=== PATIENT | female | born 1955 | race African-American/Black ===

== ENCOUNTER 2019-02-24 23:19 | Inpatient (IN) | payer MEDICAID ==
[~2019-02-24] VITALS: Ht 165.1 cm; Wt 49.9 kg
[2019-02-24] MEDS ORDERED: ACETAMINOPHEN 650MG SUPP PR STA (23:42)
[2019-02-24] MEDS ORDERED: VANCOMYCIN 1 G PREMIX 200 ML IV ONE (23:45)
[2019-02-24] MEDS ORDERED: SODIUM CHLORIDE 0.9% 1000ML BAG (SEPSIS BOLUS) IV ONE (23:45)
[2019-02-24] MEDS ORDERED: PIPERACILLIN/TAZ 3.375G PREMIX 50 ML IV ONE (23:45)
[2019-02-25] MEDS ORDERED: AZITHROMYCIN 500 MG in DEXT 5% WATER 250 ML IV SCH (00:15)
[2019-02-25 00:23] LABS: CLARITY URINE CLOUDY (CLEAR); COLOR URINE DARK YELLOW (YELLOW); KETONES URINE TRACE (NEGATIVE); LEUKOCYTE ESTERASE URINE 3+ (NEGATIVE); NITRITE URINE POSITIVE (NEGATIVE); OCCULT BLOOD URINE TRACE (NEGATIVE); PROTEIN URINE 2+ (NEGATIVE); SPECIFIC GRAVITY URINE 1.033 (1.005-1.030)
[2019-02-25] MEDS ORDERED: ONDANSETRON HCL 4MG/2ML INJ IV ONE (01:00)
[2019-02-25] MEDS ORDERED: ONDANSETRON HCL 4MG/2ML INJ IV PRN (01:30)
[2019-02-25] MEDS ORDERED: DOCUSATE SODIUM 100MG CAPSULE PO PRN (01:30)
[2019-02-25] MEDS ORDERED: GUAIFENESIN 200MG/10ML SUGAR FREE UDC PO PRN (01:30)
[2019-02-25] MEDS ORDERED: HYDROCODONE/ACETAMINOPHEN 5/325MG TABLET PO PRN (01:30)
[2019-02-25] MEDS ORDERED: DIPHENHYDRAMINE 50MG/ML VIAL IV PRN (01:30)
[2019-02-25] MEDS ORDERED: ACETAMINOPHEN 325MG TABLET PO PRN (01:30)
[2019-02-25] MEDS ORDERED: LORAZEPAM 2MG/ML CPJ IV PRN (01:30)
[2019-02-25] MEDS ORDERED: MORPHINE SULFATE 2 MG/ML CPJ (NOT FOR IM USE) IV PRN (01:30)
[2019-02-25] MEDS ORDERED: IPRATROPIUM/ALBUTEROL 0.5-3(2.5)MG/3ML NEB INH PRN (01:30)
[2019-02-25] MEDS ORDERED: MAGNESIUM/ALUMINUM HYDROXIDE/SIMETHICONE 30ML UDC PO PRN (01:30)
[2019-02-25] MEDS ORDERED: LEVOFLOXACIN 500MG PREMIX 100 ML IV SCH (01:30)
[2019-02-25] MEDS ORDERED: ENOXAPARIN 40MG/0.4ML SYR SUBCUT SCH (01:30)
[2019-02-25] MEDS ORDERED: CLONIDINE 0.1MG TABLET PO PRN (01:30)
[2019-02-25] MEDS ORDERED: NA PHOS,M-B/NA PHOS,DI-BA ENEMA 118ML PR PRN (01:30)
[2019-02-25 01:42] LABS: BASOPHILS % 0.4 % (0.0-2.0); CHLORIDE 104 mEq/L (98-107); EOSINOPHILS % 0.1 % (0.0-5.0); HEMATOCRIT. 33.3 % (36.0-48.0); MEAN CORPUSCULAR HEMOGLOBIN 27.7 pg (28.0-32.0); MEAN CORPUSCULAR VOLUME 83.3 fL (81.0-99.0); MEAN PLATELET VOLUME 8.4 fl (7.4-10.4); MONOCYTES % 8.3 % (2.0-8.0); NEUTROPHILS % 79.2 % (40.0-76.0); PLATELET 165 x1000/uL (130-400); RED BLOOD CELL COUNT 3.99 mill/uL (4.2-5.4); RED CELL DISTRIBUTION WIDTH 14.4 % (11.6-14.6)
[2019-02-25 02:10] VITALS: BP 96/49
[2019-02-25 04:00] VITALS: BP 85/45
[2019-02-25] MEDS: LEVOFLOXACIN 500MG PREMIX 100 ML IV SCH (05:50)
[2019-02-25 08:00] VITALS: BP 103/59
[2019-02-25] MEDS: ASPIRIN 81MG EC TABLET PO SCH (09:12)
[2019-02-25] MEDS: ENOXAPARIN 40MG/0.4ML SYR SUBCUT SCH (09:12)
[2019-02-25 12:00] VITALS: BP 103/59
[2019-02-25] MEDS ORDERED: POTASSIUM CHLORIDE 20MEQ TABLET SR PO NR ×3 (12:30→16:00)
[2019-02-25] MEDS ORDERED: BENZONATATE 100MG CAPSULE PO PRN (14:15)
[2019-02-25 15:01] LABS: *AMPHETAMINES SCREEN URINE NEGATIVE (NEGATIVE); *BARBITURATES SCREEN URINE NEGATIVE (NEGATIVE); *BENZODIAZEPINES SCREEN URINE NEGATIVE (NEGATIVE); *COCAINE SCREEN URINE PRESUMTIVE POSITIVE (NEGATIVE); METHADONE URINE SCREEN NEGATIVE (NEGATIVE); OPIATES URINE SCREEN NEGATIVE (NEGATIVE)
[2019-02-25 15:02] LABS: CANNABINOID URINE SCREEN NEGATIVE (NEGATIVE); PHENCYCLIDINE URINE SCREEN NEGATIVE (NEGATIVE)
[2019-02-25] MEDS: NICOTINE 21MG PATCH TD SCH (15:47)
[2019-02-25 16:00] VITALS: BP 116/56
[2019-02-25 17:36] LABS: PHOSPHORUS 2.7 mg/dL (2.5-4.9)
[2019-02-25] MEDS: METRONIDAZOLE 500 MG PREMIX 250 MG in BAG 0 EACH IV SCH (17:53)
[2019-02-25 20:00] VITALS: BP 110/58
[2019-02-25] MEDS: IPRATROPIUM/ALBUTEROL 0.5-3(2.5)MG/3ML NEB HHN SCH (20:20)
[2019-02-25 20:30] LABS: *AMPHETAMINES SCREEN URINE NEGATIVE (NEGATIVE); *BARBITURATES SCREEN URINE NEGATIVE (NEGATIVE); *BENZODIAZEPINES SCREEN URINE NEGATIVE (NEGATIVE); *COCAINE SCREEN URINE PRESUMTIVE POSITIVE (NEGATIVE); METHADONE URINE SCREEN NEGATIVE (NEGATIVE); OPIATES URINE SCREEN PRESUMTIVE POSITIVE (NEGATIVE)
[2019-02-25 20:31] LABS: CANNABINOID URINE SCREEN NEGATIVE (NEGATIVE); PHENCYCLIDINE URINE SCREEN NEGATIVE (NEGATIVE)
[2019-02-26] VITALS: BP 116/55
[2019-02-26] MEDS: METRONIDAZOLE 500 MG PREMIX 250 MG in BAG 0 EACH IV SCH ×3 (00:04→17:26)
[2019-02-26] MEDS: ACETYLCYSTEINE 100MG/ML 10% VIAL 4ML INH SCH ×3 (00:21→16:22)
[2019-02-26] MEDS: IPRATROPIUM/ALBUTEROL 0.5-3(2.5)MG/3ML NEB HHN SCH ×6 (00:21→21:25)
[2019-02-26 04:00] VITALS: BP 115/58
[2019-02-26 06:54] LABS: CHLORIDE 108 mEq/L (98-107)
[2019-02-26 06:55] LABS: BASOPHILS % 0.6 % (0.0-2.0); EOSINOPHILS % 0.9 % (0.0-5.0); HEMATOCRIT. 32.1 % (36.0-48.0); HEMOGLOBIN. 10.7 g/dL (12.0-16.0); LYMPHOCYTES % 38.2 % (20.0-50.0); MEAN CORPUSCULAR HEMOGLOBIN 27.9 pg (28.0-32.0); MEAN CORPUSCULAR VOLUME 83.7 fL (81.0-99.0); MEAN PLATELET VOLUME 8.7 fl (7.4-10.4); MONOCYTES % 13.5 % (2.0-8.0); NEUTROPHILS % 46.8 % (40.0-76.0); PLATELET 201 x1000/uL (130-400); RED BLOOD CELL COUNT 3.83 mill/uL (4.2-5.4); RED CELL DISTRIBUTION WIDTH 14.3 % (11.6-14.6)
[2019-02-26 07:04] LABS: CREATINE KINASE MB FRACTION < 1.0 ng/mL (0.5-3.6); LDL CHOLESTEROL 105 mg/dL (5-100)
[2019-02-26 07:05] LABS: CREATINE KINASE 27 IU/L (26-192); HDL CHOLESTEROL 15 mg/dL (40-59)
[2019-02-26 07:50] VITALS: BP 104/55
[2019-02-26] MEDS: ASPIRIN 81MG EC TABLET PO SCH (08:36)
[2019-02-26] MEDS: LEVOFLOXACIN 500MG PREMIX 100 ML IV SCH (08:37)
[2019-02-26] MEDS: ENOXAPARIN 40MG/0.4ML SYR SUBCUT SCH (08:37)
[2019-02-26] MEDS: NICOTINE 21MG PATCH TD SCH (08:47)
[2019-02-26 12:00] VITALS: BP 106/69
[2019-02-26] MEDS ORDERED: POTASSIUM CHLORIDE 20MEQ TABLET SR PO NR (14:00)
[2019-02-26] MEDS ORDERED: VANCOMYCIN 1 G PREMIX 200 ML IV SCH (15:30)
[2019-02-26 16:00] VITALS: BP 110/55
[2019-02-26 20:00] VITALS: BP 114/57
[2019-02-27] VITALS: BP 119/61
[2019-02-27] MEDS: METRONIDAZOLE 500 MG PREMIX 250 MG in BAG 0 EACH IV SCH ×3 (00:13→15:27)
[2019-02-27] MEDS: IPRATROPIUM/ALBUTEROL 0.5-3(2.5)MG/3ML NEB HHN SCH ×6 (00:15→21:03)
[2019-02-27] MEDS: ACETYLCYSTEINE 100MG/ML 10% VIAL 4ML INH SCH ×3 (00:15→16:24)
[2019-02-27 04:00] VITALS: BP 133/66
[2019-02-27] MEDS: VANCOMYCIN 750 MG PREMIX 150 ML IV SCH ×2 (04:10→16:41)
[2019-02-27 08:00] VITALS: BP 127/79
[2019-02-27] MEDS: LEVOFLOXACIN 500MG PREMIX 100 ML IV SCH (08:09)
[2019-02-27] MEDS: NICOTINE 21MG PATCH TD SCH (08:09)
[2019-02-27] MEDS: ASPIRIN 81MG EC TABLET PO SCH (08:09)
[2019-02-27] MEDS: ENOXAPARIN 40MG/0.4ML SYR SUBCUT SCH (08:09)
[2019-02-27 12:00] VITALS: BP 100/59
[2019-02-27 16:00] VITALS: BP 118/61
[2019-02-27 20:00] VITALS: BP 127/60
[2019-02-28] MEDS: METRONIDAZOLE 500 MG PREMIX 250 MG in BAG 0 EACH IV SCH (00:46)
[2019-02-28] MEDS: ACETYLCYSTEINE 100MG/ML 10% VIAL 4ML INH SCH ×2 (01:59→07:26)
[2019-02-28] MEDS: IPRATROPIUM/ALBUTEROL 0.5-3(2.5)MG/3ML NEB HHN SCH ×4 (01:59→12:00)
[2019-02-28 04:00] VITALS: BP_SYST 117; BP_SYST 137; BP_DIAS 66; BP_DIAS 70
[2019-02-28] MEDS: VANCOMYCIN 750 MG PREMIX 150 ML IV SCH (04:07)
[2019-02-28 06:31] LABS: HEMATOCRIT. 30.8 % (36.0-48.0); HEMOGLOBIN. 10.4 g/dL (12.0-16.0); MEAN CORPUSCULAR HEMOGLOBIN 27.8 pg (28.0-32.0); MEAN CORPUSCULAR VOLUME 82.7 fL (81.0-99.0); MEAN PLATELET VOLUME 8.4 fl (7.4-10.4); PLATELET 305 x1000/uL (130-400); RED BLOOD CELL COUNT 3.72 mill/uL (4.2-5.4); RED CELL DISTRIBUTION WIDTH 14.2 % (11.6-14.6)
[2019-02-28 07:18] LABS: CHLORIDE 106 mEq/L (98-107)
[2019-02-28 08:00] VITALS: BP 112/55
[2019-02-28] MEDS: LEVOFLOXACIN 500MG PREMIX 100 ML IV SCH (08:03)
[2019-02-28] MEDS: NICOTINE 21MG PATCH TD SCH (08:34)
[2019-02-28] MEDS: ASPIRIN 81MG EC TABLET PO SCH (08:34)
[2019-02-28] MEDS: ENOXAPARIN 40MG/0.4ML SYR SUBCUT SCH (08:34)
[2019-02-28] MEDS ORDERED: METRONIDAZOLE 500 MG PREMIX 100 ML IV SCH (09:00)
[2019-02-28 10:10] VITALS: BP 112/55
[2019-02-28 10:23] LABS: NUCLEATED RED BLOOD CELLS 1 /100 WBC; PLATELET ESTIMATE NORMAL
== END 2019-02-28 12:25 | disposition home or self-care (01) | DRG 720 ==
LOC: ER 23:19 → EDBEDREQSVC 02-25 00:38 → EDBEDREQTM 02-25 00:38 → EDBEDREQ 02-25 00:38 → ENRESERV 02-25 01:30 → 6WST 02-25 02:24
PROVIDERS: ADMIT Internal Medicine; ATTEND Internal Medicine
DX: A41.9 Sepsis, unspecified organism (principal); J96.01 Acute respiratory failure with hypoxia; E43 Unspecified severe protein-calorie malnutrition; J15.9 Unspecified bacterial pneumonia; K85.90 Acute pancreatitis without necrosis or infection, unspecified; E87.6 Hypokalemia; M06.9 Rheumatoid arthritis, unspecified; F12.10 Cannabis abuse, uncomplicated; F14.10 Cocaine abuse, uncomplicated; K83.8 Other specified diseases of biliary tract; F17.210 Nicotine dependence, cigarettes, uncomplicated; I10 Essential (primary) hypertension; N39.0 Urinary tract infection, site not specified; Z68.1 Body mass index [BMI] 19.9 or less, adult
CPT/HCPCS: 36415; 71045; 74181; 76700; 80048; 80061; 80202; 80305; 81003; 82550; 82553; 83605; 83735; 83880; 84100; 84134; 84145; 84439; 84443; 84484; 87077; 87186; 87804; 93005; 93306; 94640; 96365; 99285; J0456; J1650; J1956; J2405; J2543; J3370; J3490; J7030; J7060; J7608; J7620

== ENCOUNTER 2021-09-21 16:10 | Emergency (ER) | payer MEDICARE, OTHER ==
[~2021-09-21] VITALS: Ht 162.6 cm; Wt 49.0 kg
[2021-09-21] MEDS ORDERED: DEXTL MT (20:33)
[2021-09-21] MEDS ORDERED: ACET-2708 MT (20:33)
[2021-09-21] MEDS ORDERED: ACETAMINOPHEN 650MG/20.3ML UDC PO ONE (21:00)
[2021-09-21 21:05] VITALS: BP 138/85
== END 2021-09-21 21:05 | disposition home or self-care (01) ==
LOC: ER 16:10
DX: J06.9 Acute upper respiratory infection, unspecified (principal); B37.0 Candidal stomatitis; Z20.822 Contact with and (suspected) exposure to COVID-19
CPT/HCPCS: 71046; 87426; 99284

== ENCOUNTER 2022-05-30 19:41 | Inpatient (IN) | payer MEDICARE, OTHER ==
[~2022-05-30] VITALS: Ht 167.6 cm; Wt 43.6 kg
[~2022-05-30 19:41] MED LIST: ACET-2708 MT; ALBU18HF2 IH; DEXTL MT; FLUT1DIS3 INH; P20 MT
[2022-05-30] MEDS ORDERED: IPRATROPIUM BROMIDE (0.02%) 0.5MG/2.5ML NEB HHN STA (20:16)
[2022-05-30] MEDS ORDERED: ALBUTEROL (0.083%) 2.5MG/3ML NEB HHN STA (20:16)
[2022-05-30] MEDS ORDERED: METHYLPREDNISOLONE SOD SUCC 125 MG/2 ML VIAL IV STA (20:16)
[2022-05-30] MEDS ORDERED: ACETAMINOPHEN 325MG TABLET PO ONE (20:30)
[2022-05-30] MEDS ORDERED: VANCOMYCIN 1G PREMIX 200 ML IV SCH (20:45)
[2022-05-30] MEDS ORDERED: LEVOFLOXACIN 500MG PREMIX 100 ML IV ONE (20:45)
[2022-05-30 21:57] LABS: BASOPHILS % 0.4 % (0.0-2.0); EOSINOPHILS % 0.1 % (0.0-5.0); HEMATOCRIT. 34.8 % (36.0-48.0); HEMOGLOBIN. 11.5 g/dL (12.0-16.0); LYMPHOCYTES % 12.2 % (20.0-50.0); MEAN CORPUSCULAR HEMOGLOBIN 27.2 pg (28.0-32.0); MEAN CORPUSCULAR VOLUME 82.6 fL (81.0-99.0); MEAN PLATELET VOLUME 8.2 fl (7.4-10.4); MONOCYTES % 5.3 % (2.0-8.0); PLATELET 195 x1000/uL (130-400); RED BLOOD CELL COUNT 4.22 mill/uL (4.2-5.4); RED CELL DISTRIBUTION WIDTH 15.3 % (11.6-14.6)
[2022-05-30 22:02] LABS: CHLORIDE 109 mEq/L (98-107)
[2022-05-30] MEDS ORDERED: ENOXAPARIN 40MG/0.4ML SYR SUBCUT ONE (23:00)
[2022-05-30 23:18] LABS: BG BASE EXCESS 0.9 mmol/L (-2.0-2.0); BG CARBOXYHEMOGLOBIN 0.2 % (0.5-1.5); BG DEOXYHEMOGLOBIN 2.2 % (0.0-5.0); BG FRACTION INSPIRED OXYGEN 30; BG HCO3 ACT 24.9 mmol/L (22.0-26.0); BG METHEMOGLOBIN 0.3 % (0.0-1.5); BG OXYGEN SATURATION 97.8 % (92.0-98.5); BG OXYHEMOGLOBIN 97.3 % (94.0-97.0); BG PCO2 37.7 mmHg (35.0-45.0); BG PH 7.438 (7.350-7.450); BG PO2 105.6 mmHg (75.0-100.0); BG SAMPLE SITE RIGHT RADIAL; BG TOTAL HEMOGLOBIN 12.4 g/dL (12.0-18.0); BG VENT MODE MASK - BIPAP
[2022-05-31] MEDS ORDERED: POTASSIUM CHLORIDE 20MEQ TABLET SR PO SCH (10:00)
[2022-05-31] MEDS ORDERED: ONDANSETRON HCL 4MG/2ML INJ IV PRN (11:45)
[2022-05-31] MEDS ORDERED: DOCUSATE SODIUM 100MG CAPSULE PO PRN (11:45)
[2022-05-31] MEDS ORDERED: CLONIDINE 0.1MG TABLET PO PRN (11:45)
[2022-05-31] MEDS ORDERED: LORAZEPAM 0.5MG TABLET PO PRN (11:45)
[2022-05-31] MEDS ORDERED: IPRATROPIUM/ALBUTEROL 0.5-3(2.5)MG/3ML NEB HHN PRN (11:45)
[2022-05-31] MEDS ORDERED: HYDROCODONE/ACETAMINOPHEN 5/325MG TABLET PO PRN (11:45)
[2022-05-31] MEDS ORDERED: NALOXONE HCL 0.4MG/ML VIAL IV PRN (11:45)
[2022-05-31] MEDS ORDERED: ACETAMINOPHEN 325MG TABLET PO PRN ×2 (11:45)
[2022-05-31] MEDS ORDERED: POTASSIUM CHLORIDE 20MEQ TABLET SR PO NR (13:30)
[2022-05-31] MEDS ORDERED: BENZONATATE 100MG CAPSULE PO PRN (14:30)
[2022-05-31] MEDS ORDERED: GUAIFENESIN 600MG ER TABLET PO PRN (14:30)
[2022-05-31] MEDS: DEXAMETHASONE 10 MG/ML VIAL IV SCH (15:39)
[2022-05-31] MEDS: ENOXAPARIN 40MG/0.4ML SYR SUBCUT SCH (15:40)
[2022-05-31 16:00] VITALS: BP 106/57
[2022-05-31] MEDS: NITROGLYCERIN OINT 1GM/INCH UDPKT TD SCH (17:14)
[2022-05-31] MEDS: LEVOFLOXACIN 250MG TABLET PO SCH (18:10)
[2022-05-31] MEDS: ASPIRIN 81MG EC TABLET PO SCH (18:10)
[2022-05-31 20:00] VITALS: BP 101/56
[2022-05-31] MEDS: ALBUTEROL 6.7GM HFA INHALER ORI SCH ×2 (20:52→22:46)
[2022-06-01] VITALS: BP 118/59
[2022-06-01 00:30] LABS: *AMPHETAMINES SCREEN URINE NEGATIVE (NEGATIVE); *BARBITURATES SCREEN URINE NEGATIVE (NEGATIVE); *BENZODIAZEPINES SCREEN URINE NEGATIVE (NEGATIVE); *COCAINE SCREEN URINE PRESUMTIVE POSITIVE (NEGATIVE); CANNABINOID URINE SCREEN NEGATIVE (NEGATIVE); METHADONE URINE SCREEN NEGATIVE (NEGATIVE); OPIATES URINE SCREEN PRESUMTIVE POSITIVE (NEGATIVE); PHENCYCLIDINE URINE SCREEN NEGATIVE (NEGATIVE)
[2022-06-01 04:00] VITALS: BP 104/62
[2022-06-01 05:28] LABS: EOSINOPHILS % 0.1 % (0.0-5.0); HEMATOCRIT. 34.7 % (36.0-48.0); HEMOGLOBIN. 11.3 g/dL (12.0-16.0); LYMPHOCYTES % 12.9 % (20.0-50.0); MEAN CORPUSCULAR HEMOGLOBIN 27.4 pg (28.0-32.0); MEAN CORPUSCULAR VOLUME 84.4 fL (81.0-99.0); MEAN PLATELET VOLUME 8.8 fl (7.4-10.4); MONOCYTES % 6.3 % (2.0-8.0); NEUTROPHILS % 80.7 % (40.0-76.0); PLATELET 207 x1000/uL (130-400); RED BLOOD CELL COUNT 4.11 mill/uL (4.2-5.4); RED CELL DISTRIBUTION WIDTH 15.3 % (11.6-14.6)
[2022-06-01] MEDS: ALBUTEROL 6.7GM HFA INHALER ORI SCH ×4 (05:51→20:29)
[2022-06-01] MEDS: NITROGLYCERIN OINT 1GM/INCH UDPKT TD SCH ×4 (05:53→17:25)
[2022-06-01 08:00] VITALS: BP 96/51
[2022-06-01 08:19] LABS: CHLORIDE 106 mEq/L (98-107)
[2022-06-01] MEDS: ASPIRIN 81MG EC TABLET PO SCH (08:52)
[2022-06-01] MEDS: DEXAMETHASONE 10 MG/ML VIAL IV SCH (08:52)
[2022-06-01 12:00] VITALS: BP 113/64
[2022-06-01 16:00] VITALS: BP 103/61
[2022-06-01] MEDS: ENOXAPARIN 40MG/0.4ML SYR SUBCUT SCH (17:49)
[2022-06-01] MEDS: LEVOFLOXACIN 250MG TABLET PO SCH (17:49)
[2022-06-01 20:00] VITALS: BP 130/78
[2022-06-02] VITALS: BP 100/50
[2022-06-02] MEDS: ALBUTEROL 6.7GM HFA INHALER ORI SCH ×4 (03:53→21:32)
[2022-06-02 04:00] VITALS: BP 119/76
[2022-06-02] MEDS: NITROGLYCERIN OINT 1GM/INCH UDPKT TD SCH ×4 (05:36→18:00)
[2022-06-02 08:00] VITALS: BP 102/62
[2022-06-02] MEDS: ASPIRIN 81MG EC TABLET PO SCH (09:00)
[2022-06-02] MEDS: DEXAMETHASONE 10 MG/ML VIAL IV SCH (09:13)
[2022-06-02 12:00] VITALS: BP 128/65
[2022-06-02] MEDS: ENOXAPARIN 40MG/0.4ML SYR SUBCUT SCH (15:30)
[2022-06-02 16:00] VITALS: BP 93/43
[2022-06-02] MEDS ORDERED: ALBU6.7H3 INH ×3 (18:42→18:43)
[2022-06-02] MEDS: LEVOFLOXACIN 250MG TABLET PO SCH (18:44)
[2022-06-02 20:00] VITALS: BP 96/57
[2022-06-02] MEDS ORDERED: ATORVASTATIN CALCIUM 10MG TABLET PO SCH (21:00)
[2022-06-03] VITALS: BP 96/60
[2022-06-03 04:00] VITALS: BP 117/68
[2022-06-03] MEDS: ALBUTEROL 6.7GM HFA INHALER ORI SCH ×2 (04:03→08:06)
[2022-06-03] MEDS: NITROGLYCERIN OINT 1GM/INCH UDPKT TD SCH ×3 (05:02→12:00)
[2022-06-03 08:00] VITALS: BP 107/55
[2022-06-03] MEDS: ASPIRIN 81MG EC TABLET PO SCH (08:06)
[2022-06-03] MEDS: DEXAMETHASONE 10 MG/ML VIAL IV SCH (08:06)
[2022-06-03 08:50] LABS: HEMATOCRIT 36.9 % (36.0-48.0); HEMOGLOBIN 12.4 g/dL (12.0-16.0); MEAN CORPUSCULAR HEMOGLOBIN 28.4 pg (28.0-32.0); MEAN CORPUSCULAR VOLUME 84.4 fL (81.0-99.0); PLATELET 237 x1000/uL (130-400); RED BLOOD CELL COUNT 4.37 mill/uL (4.2-5.4); RED CELL DISTRIBUTION WIDTH 14.8 % (11.6-14.6)
[2022-06-03 11:18] LABS: CHLORIDE 102 mEq/L (98-107)
[2022-06-03 12:00] VITALS: BP 103/57
[2022-06-03] MEDS ORDERED: ASPI-1406 PO (14:42)
[2022-06-03] MEDS ORDERED: DEXA6TAB MT (14:42)
[2022-06-03] MEDS ORDERED: LEVO750T68 MT (14:42)
[2022-06-03] MEDS ORDERED: ATOR10TA PO (14:42)
[2022-06-03 15:07] VITALS: BP 103/57
[2022-06-04 06:22] LABS: ABSOLUTE LYMPHOCYTES 0.5 x10E3/uL (0.7-3.1); ABSOLUTE MONOCYTES 0.4 x10E3/uL (0.1-0.9); ABSOLUTE NEUTROPHILS 2.4 x10E3/uL (1.4-7.0); BASOPHILS 0 % (Not Estab.); HEMATOCRIT 39.4 % (34.0-46.6); HEMOGLOBIN 12.6 g/dL (11.1-15.9); IMMATURE GRANULOCYTES 0 % (Not Estab.); LYMPHOCYTES 14 % (Not Estab.); MEAN CORPUSCULAR HEMOGLOBIN 26.7 pg (26.6-33.0); MEAN CORPUSCULAR VOLUME 84 fL (79-97); MONOCYTES 12 % (Not Estab.); NEUTROPHILS 74 % (Not Estab.); PLATELETS 208 x10E3/uL (150-450); RBC 4.72 x10E6/uL (3.77-5.28); RED CELL DISTRIBUTION WIDTH 14.1 % (11.7-15.4); WBC 3.2 x10E3/uL (3.4-10.8)
[2022-06-04 11:11] LABS: % CD 4 POS. LYMPHOCYTES 12.5 % (30.8-58.5); ABSOLUTE CD 3 330 /uL (622-2402); ABSOLUTE CD 4 HELPER 63 /uL (359-1519); ABSOLUTE CD 8 SUPPRESSOR 265 /uL (109-897); CD4/CD8 RATIO 0.24 (0.92-3.72)
== END 2022-06-03 16:40 | disposition home or self-care (01) | DRG 720 ==
LOC: ER 19:41 → ENRESERV 05-31 07:34 → 7EST 05-31 11:17
PROVIDERS: ADMIT Internal Medicine; ATTEND Internal Medicine
PROC: 5A09357 Assistance with Respiratory Ventilation, Less than 24 Consecutive Hours, Continuous Positive Airway Pressure (ICD-10-PCS; principal; 2022-05-30)
PROC: 5A09357 Assistance with Respiratory Ventilation, Less than 24 Consecutive Hours, Continuous Positive Airway Pressure (ICD-10-PCS; 2022-06-02)
DX: A41.89 Other specified sepsis (principal); J96.21 Acute and chronic respiratory failure with hypoxia; J12.82 Pneumonia due to coronavirus disease 2019; E43 Unspecified severe protein-calorie malnutrition; I21.A1 Myocardial infarction type 2; U07.1 COVID-19; J68.0 Bronchitis and pneumonitis due to chemicals, gases, fumes and vapors; E87.6 Hypokalemia; D64.9 Anemia, unspecified; F14.10 Cocaine abuse, uncomplicated; I10 Essential (primary) hypertension; Z88.0 Allergy status to penicillin; Z79.899 Other long term (current) drug therapy; Z79.1 Long term (current) use of non-steroidal anti-inflammatories (NSAID); Z68.1 Body mass index [BMI] 19.9 or less, adult; Z79.51 Long term (current) use of inhaled steroids
CPT/HCPCS: 36415; 36600; 71045; 80048; 80053; 80061; 80305; 82375; 82805; 83036; 83605; 83735; 83880; 84145; 84484; 85025; 85027; 85379; 86359; 86360; 87426; 93005; 93970; 94640; 94660; 99291; C9803; J1100; J1650; J1956; J2930; J3370